=== PATIENT | female | born 2000 | race Two or more races ===

== ENCOUNTER 2024-09-27 04:19 | Emergency (ER) | payer BC, SELFPAY ==
[2024-09-27 04:37] VITALS: BP 128/77; PULSE 84; RESP 16; TEMP 36.9; O2SAT 99
--- NOTE | 2024-09-27 04:57 | XR_ITS ---
Examination: CT abdomen and pelvis without contrast. Coronal 3-D reconstructions. Sagittal 2-D reconstructions. Date and time of exam:September 25, 2024 0731 hrs. Indications: Right-sided abdominal pain onset today CTDI: vol (mGy): 10.4 DLP: (mGycm): 578 Technique: Axial images of the abdomen have been obtained, 3 mm slice thickness Intravenous contrast material has not been administered. Low dose protocols were performed. One or more of the following dose reduction techniques were used; automated exposure control, adjustment of the mA and/or KV according to patient size, use of iterative reconstruction technique. Findings: No focal liver lesions or biliary tract dilatation. Contracted gallbladder. Spleen not enlarged. Negative for pancreatitis. Normal adrenal glands. Minimal right perinephric and right periureteral stranding Normal appendix No bowel obstruction No pelvic mass Contracted urinary bladder Impression: Minimal right perinephric and right periureteral stranding, consider right pyelonephritis Normal appendix
--- NOTE | 2024-09-27 04:57 | EDRME_ITS ---
Rapid Medical Screening Exam [facility] Arrival date/time: 09/27/24 04:19 24F with no significant PMH presents to ED with 1 day of sudden R flank pain, difficulty urinating, and N/V. Patient denies dysuria. Patient is currently on her menstrual cycle. Chief Complaint: Back Pain/Injury Vital signs: Vital Signs Temperature 98.4 F 09/27/24 04:37 Pulse Rate 84 09/27/24 04:37 Respiratory Rate 16 09/27/24 04:37 Blood Pressure 128/77 09/27/24 04:37 Pulse Oximetry (%) 99 09/27/24 04:37 Oxygen Delivery Method Room Air 09/27/24 04:37
[2024-09-27] MEDS: ONDANSETRON ODT 4 MG TABRAP PO (05:10)
[2024-09-27 05:25] LABS: Collection Type, Urine Clean Catch
[2024-09-27] MEDS: KETOROLAC INJ 60 MG/2 ML VIAL IM (05:47)
[2024-09-27 05:51] LABS: Amphetamine/Methamp Scrn,U Negative (Negative); Barbiturate Screen,Urine Negative (Negative); Benzodiazepines Screen,Urine Negative (Negative); Benzoylecgonine Screen, Ur Negative (Negative); Fentanyl Screen,Urine Negative (Negative); Opiate Screen,Urine Negative (Negative); THC Screen,Urine Negative (Negative)
[2024-09-27 05:54] LABS: Bacteria,Urine Rare; Bilirubin,Urine Negative (Negative); Blood,Urine 3+ (Negative); Budding Yeast,Urine Present; Clarity,Urine Turbid (Clear/Hazy); Glucose, Urine Negative (Negative); Ketones,Urine Negative (Negative); Leukocyte Esterase,Urine Positive (Negative); Nitrite,Urine Positive (Negative); PH,Urine 6.5 (5.0-7.0); Protein,Urine 2+ (Neg - Trace); RBC,Urine 807 /hpf (0-3); Specific Gravity,Urine 1.022 (1.001-1.035); Squamous Epithelial Cell,Urine 5 /hpf (0-5); Urobilinogen,Urine Negative mg/dL (0.0-1.0); WBC,Urine 597 /hpf (0-5)
[2024-09-27 05:55] LABS: HCG Qualitative,Urine Negative
[2024-09-27 05:57] LABS: Color,Urine Yellow (Lt Yel-Yel); Culture Indicated,Urine Yes
[2024-09-27 06:21] LABS: Basophils % (Auto) 0 % (0-2.5); Eosinophils % (Auto) 0 % (0-10); Hematocrit 37.4 % (36.0-46.0); Hemoglobin 12.8 g/dL (12.0-16.0); Immature Granulocytes % (Auto) 0 % (0-0); Immature Granulocytes Auto 0.02 Thou/mm3 (0.00-0.00); Lymphocytes # (Auto) 1.3 Thou/mm3 (1.0-4.8); Lymphocytes % (Auto) 13 % (10-50); Mean Corpuscular HGB Conc 34.2 g/dl (31.0-37.0); Mean Corpuscular Hemoglobin 29.9 pg (25.0-35.0); Mean Corpuscular Volume 87 fL (80-100); Monocytes # (Auto) 0.4 Thou/mm3 (0.0-0.8); Monocytes % (Auto) 4 % (0-12); Neutrophils % (Auto) 82 % (37-80); Nucleated Red Blood Cell % 0 /100 WBC (0); Platelet Count 237 Thou/mm3 (140-440); Red Blood Count 4.28 Miln/mm3 (4.00-5.20); White Blood Count 9.8 Thou/mm3 (3.6-11.0)
[2024-09-27 06:40] LABS: Alanine Aminotransferase 21 U/L (10-49); Albumin, Serum 4.5 gm/dL (3.5-5.0); Albumin/Globulin Ratio 1.6 (1.2-2.2); Alkaline Phosphatase 77 U/L (46-116); Anion Gap 7 (7-16); Aspartate Amino Transferase 22 U/L (0-34); BUN/Creatinine Ratio 11 Ratio (12-20); Bilirubin,Total 0.6 mg/dL (0.3-1.2); Blood Urea Nitrogen 8 mg/dL (9-23); Calcium 9.8 mg/dL (8.3-10.6); Calcium (Corrected) 9.8 mg/dL (8.5-10.1); Chloride 109 mMol/L (98-107); Creatinine (Component) 0.7 mg/dL (0.6-1.3); Globulin 2.8 gm/dL (2.3-3.5); Glucose 111 mg/dL (74-106); Lipase 30 U/L (12-53); Osmolality,Calculated 282 (275-295); Potassium 4.3 mMol/L (3.4-5.1); Sodium 142 mMol/L (136-145); Total Protein 7.3 gm/dL (5.7-8.2); eGFR > 60 See Note
[2024-09-27] MEDS: cefTRIAXone SOD INJ 1,000 MG VIAL 1000 MG IM (08:45)
[2024-09-27] MEDS: LIDOCAINE HCL 1% 20 ML VIAL 2.1 ML INFL (08:45)
[2024-09-27] MEDS: FLUCONAZOLE 150 MG TABLET PO (08:45)
--- NOTE | 2024-10-08 06:45 | EDNOTE_ITS ---
ED Abdominal Pain RME/HPI General Chief Complaint: Back Pain/Injury Stated complaint: RIGHT LOWER BACK PAIN Time seen by provider: 09/27/24 08:26 Arrival date/time: 09/27/24 04:19 24F with no significant PMH presents to ED with 1 day of sudden R flank pain, difficulty urinating, and N/V. Patient denies dysuria. Patient is currently on her menstrual cycle. There are no other associated symptoms or aggravating factors no other modifying factors, patient denies taking medication before coming to ER today Limitations: no limitations RME / HPI RME / HPI narrative: 09/27/24 04:19 24F with no significant PMH presents to ED with 1 day of sudden R flank pain, difficulty urinating, and N/V. Patient denies dysuria. Patient is currently on her menstrual cycle. Related Data Previous Rx's ?Medication ?Instructions ?Recorded albuterol sulfate 90 mcg/actuation 2 puff inhalation Q ID #8.5 grams 06/12/22 aerosol inhaler diphenhydramine HCl 25 mg capsule 50 mg (2 x 25 mg) PO TID PRN 06/12/22 (Benadryl) allergic reaction #30 caps ibuprofen 800 mg tablet 800 mg PO TID PRN pain #30 t abs 09/27/24 Allergies Allergy/AdvReac Type Severity Reaction Status Date / Time No Known Allergies Allergy Verified 09/27/24 04:23 Review of Systems Review of Systems Systems Reviewed: All systems reviewed, normal except as documented Constitutional Constitutional: Reports system reviewed and no additional complaints, except as documented, Denies fever(s) and Denies headache(s) Eyes Eyes: Reports system reviewed and no additional complaints, except as documented and Denies blurry vision ENT Ears, Nose, Mouth, and Throat: Reports system reviewed and no additional complaints, except as documented, Denies headache(s), Denies nasal congestion and Denies nasal discharge Cardiovascular Cardiovascular: Reports system reviewed and no additional complaints, except as documented, Denies chest pain and Denies dyspnea Respiratory Respiratory: Reports system reviewed and no additional complaints, except as documented, Denies chest congestion, Denies cough and Denies dyspnea Gastrointestinal Gastrointestinal: Reports system reviewed and no additional complaints, except as documented and Reports abdominal pain Genitourinary Genitourinary: Reports system reviewed and no additional complaints, except as documented, Denies abnormal vaginal bleeding, Reports dysuria and Reports flank pain Integumentary/Breasts Skin/Breast: Reports system reviewed and no additional complaints, except as documented and Denies rash Neurologic Neurologic: Reports system reviewed and no additional complaints, except as documented, Reports as per HPI and Denies headache(s) Past Medical History Past Medical History CARDIAC: Negative Congestive Heart Failure RESPIRATORY: Negative Chronic Obstructive Pulmonary Disease (COPD) GENITOURINARY: Negative Renal Disease ENDOCRINE: Negative Diabetes Mellitus Type 1 or Diabetes Mellitus Type 2 Social History SMOKING STATUS: Never smoker ED Exam General Limitations: Present no limitations General appearance: Present alert and in no apparent distress Head Head exam: Present atraumatic, normocephalic and normal inspection Eye Eye exam: Present normal appearance, PERRL and EOMI; Absent conjunctival injection ENT ENT exam: Present normal exam, normal oropharynx and mucous membranes moist Neck Neck exam: Present normal inspection, full ROM and trachea midline Chest Chest inspection: Present normal inspection and symmetric chest wall rise Respiratory Respiratory exam: Present normal lung sounds bilaterally; Absent respiratory distress, wheezes, stridor, accessory muscle use or prolonged expiratory phase Cardiovascular Cardiovascular exam: Present regular rate, normal rhythm and normal heart sounds Abdominal Exam Abdominal exam: Present soft and normal bowel sounds; Absent distention, tende rness, guarding, rebound or rigidity Extremities Exam Extremities exam: Present normal inspection and full ROM Back Exam Back exam: Present normal inspection and full ROM Neurological Exam Neurological exam: Present alert, oriented X3 and CN II-XII intact Psychiatric Psychiatric exam: Present normal affect and normal mood Skin Skin exam: Present warm, dry, intact and normal color Course Quality Measures none Orders Category Date Time Status CT abdomen pelvis wo con Stat Exams 09/27/24 04:57 Completed CBC Stat Lab 09/27/24 06:12 Completed CMP [Comprehensive Metabolic Panel] Stat Lab 09/27/24 06:12 Completed Drug Screen,Urine Stat Lab 09/27/24 05:15 Completed HCG Qualitative,Urine Stat Lab 09/27/24 05:15 Completed Lipase Stat Lab 09/27/24 06:12 Completed Urinalysis, C/S if Indicated Stat Lab 09/27/24 05:15 Completed Urine Culture Stat Lab 09/27/24 05:15 Completed Fluconazole [Diflucan] Med 09/27/24 08:23 Discontinued 150 mg PO X1 ONE Ketorolac Inj [Toradol Inj] Med 09/27/24 04:57 Discontinued 60 mg IM X1 ONE Lidocaine 1% 20 ml [Xylocaine 1% 20 ML] Med 09/27/24 08:23 Discontinued 2.1 ml INFL X1 ONE Ondansetron Odt [Zofran Odt] Med 09/27/24 04:57 Discontinued 4 mg PO X1 ONE cefTRIAXone [Rocephin] Med 09/27/24 08:23 Discontinued 1,000 mg IM X1 ONE Vital Signs Vital signs: Vital Signs Temperature 98.4 F 09/27/24 04:37 Pulse Rate 84 09/27/24 04:37 Respiratory Rate 16 09/27/24 04:37 Blood Pressure 128/77 09/27/24 04:37 Pulse Oximetry (%) 99 09/27/24 04:37 Oxygen Delivery Method Room Air 09/27/24 04:37 O2 saturation 99% room air within normal limits Abdominal Pain MDM MDM Narrative MDM Narrative:: 24F with no significant PMH presents to ED with 1 day of sudden R flank pain, difficulty urinating, and N/V. Patient denies dysuria. Patient is currently on her menstrual cycle. There are no other associated symptoms or aggravating factors no other modifying factors, patient denies taking medication before coming to ER today On exam patient well-appearing patient's not appear ill or toxic in no acute distress Imaging as well as lab work obtained no acute emergent findings noted Symptoms are highly consistent with UTI I do not believe patient is pyelonephritis Patient treated with Rocephin as well as fluconazole here discharged with antibiotics and pain medication Patient discharged home in no distress to follow-up with primary care doctor in the next 24 to 48 hours and for any worsening symptoms to return to the ER immediately Patient data External records reviewed:: [facility] previous records Clinical information provided by:: patient Social determinants that could affect healthcare access:: none Patient has the following chronic illnesses:: None How is presenting disease/condition affected by chronic disease/condition?: no chronic disease Evaluation data The following diagnostics were reviewed and interpreted by me:: lab results and radiology exam(s) Lab and/or radiology exams considered but not ordered:: Labs radiology obtain Interpretation Summary: Reviewed by me Medications / Prescriptions Medications or Prescriptions considered but not ordered:: Given Medication administrations:: Medication Administration History Discontinued Medications Ceftriaxone Sodium (Ceftriaxone Sod Inj 1,000 Mg Vial) 1,000 mg IM X1 ONE Stop: 09/27/24 08:24 Last Admin: 09/27/24 08:45 Dose: 1,000 mg Documented By: TITUS Fluconazole (Fluconazole 150 Mg Tablet) 150 mg PO X1 ONE Stop: 09/27/24 08:24 Last Admin: 09/27/24 08:45 Dose: 150 mg Documented By: TITUS Ketorolac Tromethamine (Ketorolac Inj 60 Mg/2 Ml Vial) 60 mg IM X1 ONE Stop: 09/27/24 04:58 Last Admin: 09/27/24 05:47 Dose: 60 mg Documented By: YUE Lidocaine HCl (Lidocaine Hcl 1% 20 Ml Vial) 2.1 ml INFL X1 ONE Stop: 09/27/24 08:24 Last Admin: 09/27/24 08:45 Dose: 2.1 ml Documented By: TITUS Ondansetron HCl (Ondansetron Odt 4 Mg Tabrap) 4 mg PO X1 ONE; Protocol Stop: 09/27/24 04:58 Last Admin: 09/27/24 05:10 Dose: 4 mg Documented By: YUE Given Consultations Consultation(s) initiated? (list below): No Diagnosis Differential diagnosis abdominal pain: abdominal pain, acute appendicitis, ca lculus of kidney, constipation, pancreatitis and other (UTI, pyelonephritis) Most likely diagnosis given after review of the tests above:: UTI Admission Indicated Admission indicated?: not indicated Admission Request Was there a request for admission?: No Disposition Plan Disposition Plan: Discharge Discharge Attestation Discharge Attestation: The patient and all family members were given an opportunity to ask questions and understood the discharge instructions. Discharge instructions specifically effects, indications for sooner follow up or return to the emergency department, and the expected course of current diagnosis. Patient condition: Stable Discharge Plan Plan Patient Disposition: HOME (Self Care) Disposition Comment: Stable Prescriptions/Referrals Prescriptions/Med Rec: New ibuprofen 800 mg tablet 800 mg PO TID PRN (Reason: pain) Qty: 30 0RF No Action diphenhydramine HCl [Benadryl] 25 mg capsule 50 mg PO TID PRN (Reason: allergic reaction) Qty: 30 0RF albuterol sulfate 90 mcg/actuation HFA aerosol inhaler 2 puff inhalation QID Qty: 8.5 0RF Referrals: Maria E Au MD [Primary Care Provider] - 09/28/24 Problem List Clinical Impression: UTI (urinary tract infection) Patient/Caregiver Discharge Instructions Education Materials: Urinary Tract Infections in Women Additional Instructions: Please follow up with your primary care doctor in the next 24-48hrs for any worsening symptoms return here immediately Print Language: Slovak Stand Alone Forms: Belinda Award Info., Work/School Release, Patient Portal Info Letter PA/[employer] Supervising Physician PA/[employer]CH[employer] Supervising Physician: Dr. vaughan
== END 2024-09-27 08:49 | disposition home or self-care (01) ==
PROVIDERS: Physician Assistant; Emergency Provider Family Medicine; PCP Family Medicine
DX: N39.0 Urinary tract infection, site not specified (principal); R10.9 Unspecified abdominal pain
CPT/HCPCS: 36415; 74176; 80053; 80307; 81001; 81025; 83690; 85025; 87077; 87086; 87186; 96372; 99284; J0696; J1885; J3490; Q0162; A9270